=== PATIENT | male | born 1960 | race Caucasian/White ===

== ENCOUNTER 2021-07-22 14:56 | Emergency (ER) | payer BC ==
[2021-07-22 15:52] VITALS: BP 144/86; PULSE 110
[2021-07-22] MEDS ORDERED: Penicillin V Potassium 500 MG Tab PO STA (17:51)
[2021-07-22] MEDS ORDERED: Acetaminophen 325 MG Tab PO ONE (17:59)
--- NOTE | 2021-07-22 18:01 | EDM.PDOC ---
ED HPI GENERAL MEDICAL PROBLEM - General Chief Complaint: ENT Problem Stated Complaint: tooth pain Time Seen by Provider: 07/22/21 16:50 Source of Information: Reports: Patient History Limitations: Reports: No Limitations, Other (ED vital signs reveal a temp of 102.5, pulse of 110 [place] rate of 20, blood pressure 144/86, pulse ox 92% on room air.) - History of Present Illness INITIAL COMMENTS - FREE TEXT/NARRATIVE: 61-year-old male presents the emergency department with complaints of dental pain and fever that started 3 days ago. Patient states that he has noted swelling to his gumline on the top left side of his mouth. Also noted subjective fever and chills as well as foul taste. He states he did try to get into a dentist however has been unable to and plans on calling the emergency dentist in the morning. Treatments STUNT DOUBLE: Reports: Other (see below) Other Treatments STUNT DOUBLE: excedrin Left Upper Tooth/Teeth Pain Score (Numeric/FACES): 8 - Related Data Allergies Allergy/AdvReac Type Severity Reaction Status Date / Time No Known Allergies Allergy Verified 09/27/14 10:31 [employer] Home Meds: Home Meds Pravastatin [Pravachol] 1 tab PO BEDTIME 09/27/14 [History] Quinapril [Accupril] 1 tab PO DAILY 09/27/14 [History] Albuterol Sulfate [Albuterol Sulfate Hfa] 2 puff INH DAILY PRN 07/22/21 [History] Cyanocobalamin/FA/Pyridoxine [Folbic] 1 mg PO DAILY 07/22/21 [History] Meloxicam 15 mg PO DAILY 07/22/21 [History] Tamsulosin [Flomax] 0.4 mg PO DAILY 07/22/21 [History] amLODIPine [Norvasc] 10 mg PO DAILY 07/22/21 [History] sitaGLIPtin Phosphate [Januvia] 50 mg PO DAILY 07/22/21 [History] Past Medical History Cardiovascular History: Reports: High Cholesterol, Hypertension Respiratory History: Reports: SOB Genitourinary History: Reports: Renal Calculus - Infectious Disease History Infectious Disease History: Reports: Chicken Pox, Measles, Mumps - Past Surgical History GI Surgical History: Reports: Colonoscopy, Hernia, Inguinal Social & Family History - Tobacco Use Tobacco Use Status *Q: Never Tobacco User - Caffeine Use Caffeine Use: Reports: Coffee, Soda, Tea - Recreational Drug Use Recreational Drug Use: No ED ROS ENT - Review of Systems Review Of Systems: Comprehensive ROS is negative, except as noted in HPI. ED EXAM, ENT - Physical Exam Exam: See Below Exam Limited By: No Limitations General Appearance: Alert, WD/WN, Mild Distress Ears: Normal External Exam, Hearing Grossly Normal Nose: Normal Inspection Mouth/Throat: Dental Abcess (Along the back teeth on top the inner aspect of gumline), Dental Pain, Dental Tenderness. No: Peritonsillar Mass, Tonsillar Swelling, Uvular Deviation, Uvular Edema Head: Atraumatic, Normocephalic Neck: Normal Inspection, Supple, Non-Tender. No: Lymphadenopathy (L), Lymphadenopathy (R) Respiratory/Chest: No Respiratory Distress, No Accessory Muscle Use Cardiovascular: Normal Peripheral Pulses, Regular Rate, Rhythm GI/Abdominal: No Distention (Male) Exam: Deferred Rectal (Males) Exam: Deferred Back: Normal Inspection Extremities: Normal Inspection Neurological: Alert, Oriented, Normal Cognition Psychiatric: Normal Affect, Normal Mood Skin: Warm, Dry, Intact, Normal Color, No Rash Lymphatic: No Adenopathy Course - Vital Signs Text/Narrative:: As stated above, patient presents with dental pain located on the top inner aspect of his back teeth. On exam, the patient is febrile 102. He denies any associated pain in his cervical or tonsillar lymph nodes or the preauricular lymph nodes. He does have an abscess noted that is approximately 2 cm x 1 cm on the inner aspect of his gumline on the top inner left. I do feel that this area need to be lanced or incision and drain. Will obtain consent and timeout. Last Recorded V/S: Last Vital Signs Temp 102.5 F H 07/22/21 15:51 Pulse 110 H 07/22/21 15:51 Resp 20 07/22/21 15:51 BP 144/86 H 07/22/21 15:51 Pulse Ox 92 L 07/22/21 15:51 - Orders/Labs/Meds Meds: Medications Discontinued Medications Generic Name Dose Route Start Last Admin Trade Name Freq PRN Reason Stop Dose Admin Acetaminophen 975 mg 07/22/21 17:59 07/22/21 18:05 Acetaminophen 325 Mg Tab PO 07/22/21 18:00 975 mg NOW ONE Administration Penicillin V Potassium 500 mg 07/22/21 17:51 07/22/21 18:05 Penicillin V Potassium 500 Mg Tab PO 07/22/21 17:52 500 mg NOW STA Administration - Re-Assessments/Exams Free Text/Narrative Re-Assessment/Exam: 07/22/21 17:58 Topical anesthetic was applied to the area. Marcaine was then used to locally anesthetize the area. Small incision was made in the gumline and a small amount of purulent drainage was noted. Drainage was collected for aerobic and anaerobic cultures. Patient will be placed on penicillin VK 500 mg 4 times daily for 14 days. We will also give him Tylenol 975 while in the emergency department. Patient tolerated the procedure well. Bloody drainage noted to be oozing from the area. Gauze applied. Departure - Departure Time of Disposition: 18:05 Disposition: Home, Self-Care 01 Condition: Good Clinical Impression: Dental abscess - Discharge Information Instructions: Dental Abscess, [id number] Referrals: Jessy Teague PA-C [Primary Care Provider] - Forms: ED Department Discharge Additional Instructions: You were seen in the emergency department today with complaints of dental pain. Upon exam you did have a dental abscess noted on the top left inner side of your teeth along the gumline. This area was anesthetized and lanced and drained. Cultures were sent. While in the emergency department you were given Tylenol 975 mg for fever as well as penicillin for antibiotic treatment. You were given a prescription for penicillin to be taken 4 times daily for 14 days. Recommend that you do follow-up with a dentist as soon as you can be evaluated. You should start feeling better within the next 48 hours as the infection drains and the antibiotics begin to kick in. Should your condition worsen or change, do not hesitate returning to the emergency department.
== END 2021-07-22 18:26 | disposition home or self-care (01) ==
LOC: JD.ED 14:56
DX: K04.7 Periapical abscess without sinus (principal); E78.00 Pure hypercholesterolemia, unspecified; I10 Essential (primary) hypertension; Z79.899 Other long term (current) drug therapy
CPT/HCPCS: 41800; 87070; 87075; 87205; 99283; A9270

== ENCOUNTER 2023-01-29 07:55 | Day surgery (SDC) | payer BC ==
[~2023-01-29 07:55] MED LIST: Lactated Ringers 1,000 ML IV SCH; Lidocaine 1%/Sod Bicarbonate in NS 8.4% 1 ML Syringe IDERM PRN; Sodium Chloride 0.9% 10 ML Syringe FLUSH PRN; Sodium Chloride 0.9% 10 ML Syringe FLUSH SCH
[2023-01-29] MEDS ORDERED: Propofol 200 MG/20 ML SDV ONE (09:33)
[2023-01-29] MEDS ORDERED: Midazolam 1 MG/ML 2 ML SDV ONE (09:33)
[2023-01-29] MEDS ORDERED: Lidocaine 1% 4 ML ONE (09:33)
[2023-01-29] MEDS ORDERED: fentaNYL 100 MCG/2 ML SDV ONE (09:33)
[2023-01-29 13:18] VITALS: BP 115/78; PULSE 80
== END 2023-01-29 10:50 | disposition home or self-care (01) ==
LOC: JD.SDS 07:55
PROVIDERS: ATTEND Surgery
DX: D12.5 Benign neoplasm of sigmoid colon (principal); K57.30 Diverticulosis of large intestine without perforation or abscess without bleeding; N40.1 Benign prostatic hyperplasia with lower urinary tract symptoms; R39.12 Poor urinary stream; E78.00 Pure hypercholesterolemia, unspecified; I10 Essential (primary) hypertension; G47.33 Obstructive sleep apnea (adult) (pediatric); E11.9 Type 2 diabetes mellitus without complications; Z79.84 Long term (current) use of oral hypoglycemic drugs; Z79.899 Other long term (current) drug therapy
CPT/HCPCS: 45380; 45385; J2250; J2704; J3010; J7120; 00811; J3490